=== PATIENT | male | born 1945 | race Caucasian/White ===

== ENCOUNTER 2019-10-22 10:43 | Inpatient (IN) ==
[2019-10-22] MEDS ORDERED: SODIUM CHLORIDE 0.9% INJ SCH (16:00)
[2019-10-22 16:47] LABS: HEMATOCRIT 41.5 % (42.0-52.0); HEMOGLOBIN 13.8 g/dL (14.0-18.0); RBC 4.51 XMIL (4.7-6.1); WBC 5.45 X1000 (4.8-10.8)
[2019-10-22 16:48] LABS: BASO# 0.01 X1000 (0.0-0.2); BASO% 0.2 % (0.0-0.8); EOS# 0.12 X1000 (0.0-0.7); EOS% 2.2 % (0.0-10.0); LYMPH# 1.88 X1000 (1.2-3.4); LYMPH% 34.5 % (20.5-51.1); MCH 30.6 PG (27-31); MCHC 33.3 g/dL (33-37); MONO% 7.3 % (1.7-9.3); NEUT# 3.04 X1000 (1.4-6.5); NEUT% 55.8 % (42.2-75.2); PLT 87 X1000 (130-400); RDW 14.7 % (11.5-14.5)
--- NOTE | 2019-10-22 17:00 | Diag Imaging Result Doc PS360 ---
EXAM: CT LUMBAR SPINE W/O CONTRAST INDICATION: Left sciatica TECHNIQUE: This exam was performed using automated exposure control, adjustment of mA or kV according to patient size, and/or use of iterative reconstruction technique. COMPARISON: None. FINDINGS: There is degenerative disc disease at multiple levels throughout the lumbar spine. It is mild at most levels but it is most significant at L5-S1 where there is a broad-based disc osteophyte complex causing moderate stenosis of the bony neuroforamina bilaterally. There is milder central canal narrowing at this level. At L4-5, there is a smaller broad-based disc osteophyte complex but there is bilateral facet arthropathy. This is causing at least mild bony foraminal stenosis bilaterally. Otherwise, there is no discrete fracture, subluxation, or significant intrinsic osseous lesion. The surrounding soft tissues are essentially unremarkable. IMPRESSION: Degenerative arthropathy at several levels that is most significant at L4-5 and L5-S1 as described. Electronically signed by Teddy Guerrero 10/22/2019 4:58 PM
[2019-10-22 17:12] LABS: CALCIUM 8.8 mg/dL (8.8-10.2); CREATININE 1.7 mg/dL (0.7-1.2); POTASSIUM 4.1 mmol/L (3.5-5.1)
[2019-10-22] MEDS: LOVENOX SUBQ SCH (17:31)
[2019-10-22] MEDS: PROTONIX IV SCH (17:31)
[2019-10-22] MEDS: SOLU-MEDROL IV SCH (17:33)
[2019-10-22] MEDS: NORVASC PO SCH ×2 (20:46→20:49)
[2019-10-22] MEDS: ROBAXIN PO SCH (20:46)
[2019-10-22] MEDS ORDERED: NORCO-7.5 PO PRN (22:08)
--- NOTE | 2019-10-22 22:36 | HISTORY AND PHYSICAL ---
CHIEF COMPLAINT: Intractable left sciatica pain for the last 2 weeks. HISTORY OF PRESENT ILLNESS: He is a 74-year-old white gentleman who was seen in my office last week with the above symptoms. He started having sciatica pain and pain is 8/10. Pain is increasing with coughing and sneezing. He is also unable to ambulate, some weakness and tingling and numbness. He had a positive straight leg raise test. He is a complicated historian. Family was at bedside. We were not able to do outpatient MRI due to permanent pacemaker. Options were discussed. Since the pain is out of control, not able to ambulate and positive straight leg raise test, admit to the hospital for control of the pain as well as further workup since include CT. 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 Alejandro. According to the family, he is due for PET scan sometime next week. So, basically admitted to the hospital for control of pain, physical therapy and further workup. PAST MEDICAL HISTORY: Glucose intolerance and chronic systolic heart failure stable. 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 PAST SURGICAL HISTORY: Hydrocelectomy, permanent pacemaker, aortic valve, mitral valve replacement, bovine by Dr. David, March 2016. ALLERGIES: Reported to codeine. MEDICINES IN MY OFFICE: Amlodipine 5 mg daily, B12 injections as needed, Aldactone 25 daily, Seroquel 25 daily, aspirin 81 mg daily. SOCIAL HISTORY: . Two children. Lives in [place]. No smoking. No alcohol. FAMILY HISTORY: Father at the age of 87. Mother at 78 with diabetes. HEALTH MAINTENANCE: Flu vaccine May 2019, pneumococcal 2010. Last prostate exam August 2019. Colonoscopy 11/17/2014, diverticulosis with Dr. Rayo. REVIEW OF SYSTEMS: HEENT: No headache. No vision problem. No earache. No sore throat. Neck: No goiter. No lymphadenopathy. No bruit. Cardiopulmonary: No chest pain, shortness of breath, PND, orthopnea. GI: No nausea, vomiting, or abdominal pain. : No history of hesitancy, frequency, dysuria. Musculoskeletal: Intractable left sciatica pain with weakness, tingling and numbness and stumbling. PHYSICAL EXAMINATION: VITAL SIGNS: Temperature is 97 degrees, pulse 70, blood pressure is stable. Height 6 feet 1 inch, 268 pounds. HEENT: Atraumatic, normocephalic. Pupils equal, reactive to light. TMs are normal. Nose and throat within normal limits. NECK: Supple no lymphadenopathy. CHEST: Clear. HEART: Sounds are regular. No murmurs. Pacemaker present on the left side of the chest. ABDOMEN: Belly is soft, obese, nontender. EXTREMITIES: Straight leg raise test is positive. Plantar flexion extension is normal. Gait is stable. INVESTIGATIONS: CBC: White cell count 5.4, hematocrit 41, platelet 87,000. SMA 7, sodium 140, potassium 4.1, BUN 30, creatinine 1.7. ASSESSMENT AND PLAN: 1. A 74-year-old white gentleman admitted to the hospital with left sciatica pain. Plain x-rays were negative in my office [address] of lumbar spine. In the meantime, continue on Robaxin IV steroids and physical therapy. 2. Deep venous thrombosis prophylaxis with Lovenox in light of chronic kidney disease and thrombocytopenia. Decrease the dose to 30 mg. 3. Chronic systolic heart failure that is improving. Currently on aspirin, Aldactone and Norvasc. Status post mitral and aortic valve bovine replacement. No need for anticoagulation. 4. Small-cell cancer on the sinus cavities, status post chemotherapy and radiation, stable. Waiting for PET scan by Dr. Alejandro. 5. Sleep apnea on CPAP machine and based on the CT further recommendations will be followed. cc: Sundeep Lynn MD
[2019-10-23] MEDS: SOLU-MEDROL IV SCH ×3 (00:08→18:15)
[2019-10-23] MEDS: ALDACTONE PO SCH (09:18)
[2019-10-23] MEDS: SEROQUEL PO SCH (09:18)
[2019-10-23] MEDS: ASPIRIN EC PO SCH (09:18)
[2019-10-23] MEDS: ROBAXIN PO SCH ×2 (09:18→20:27)
[2019-10-23] MEDS: NORVASC PO SCH ×2 (09:18→20:27)
--- NOTE | 2019-10-23 15:25 | Diag Imaging Result Doc PS360 ---
EXAM: BONE SCAN, TOTAL BODY 10/23/2019 HISTORY: BACK pain and small cell cancer in sinus TECHNIQUE: Bone scan, 26 mCi of technetium 99m MDP with static scanning the entire skeleton. COMMENT: There is increased activity in the right ankle just above the mortise. There is also increased activity in the right knee both which are probably related to degenerative disease. There is a faint focal is of increased activity in the upper tibia on the right and the mid femur on the left, the latter being somewhat more intense. There are no plain radiographs or other studies of these areas available for comparison. Otherwise are has no evidence of focal abnormal radiotracer accumulation. IMPRESSION: Focal abnormalities in the left femur and right tibia of uncertain significance. Advise correlation with plain radiographs. Electronically signed by Frankie Pan 10/23/2019 3:22 PM
[2019-10-23] MEDS: PROTONIX IV SCH (18:15)
[2019-10-23] MEDS: LOVENOX SUBQ SCH (18:16)
--- NOTE | 2019-10-23 22:05 | PROGRESS NOTE ---
DATE: 10/23/2019 SUBJECTIVE: The patient is ambulating to the bathroom without assistance. The pain is 8/10. Positive straight leg raise test. PHYSICAL EXAMINATION: Vital signs: Temperature is 97 degrees, pulse 69, blood pressure is stable. HEENT: Within normal limits. Chest: Clear. Heart: Sounds are regular. Abdomen: Belly is soft, nontender. Good bowel sounds. INVESTIGATIONS: CT scan of C-spine showed degenerative arthropathy at several levels, most significant at L4-L5, L5-S1. ASSESSMENT AND PLAN: 1. Chronic kidney disease stable. 2. Left sciatica pain. Continue [place] and IV steroids. Robaxin. 3. Out of the bed. 4. Deep venous thrombosis prophylaxis with Lovenox. 5. History of small cell cancer of sinus cavities in remission. Waiting for PET scan. Schedule for bone scan. Continue present treatment. We will follow up. Physical therapy as discussed. LEVEL OF DOCUMENTATION: 25 minutes. cc: Sundeep Lynn MD
[2019-10-24] MEDS: SOLU-MEDROL IV SCH ×4 (00:15→23:12)
[2019-10-24] MEDS: ALDACTONE PO SCH (08:59)
[2019-10-24] MEDS: SEROQUEL PO SCH (08:59)
[2019-10-24] MEDS: ROBAXIN PO SCH ×2 (08:59→23:04)
[2019-10-24] MEDS: ASPIRIN EC PO SCH (08:59)
[2019-10-24] MEDS: NORVASC PO SCH ×2 (09:00→23:04)
[2019-10-24] MEDS: LOVENOX SUBQ SCH (16:15)
[2019-10-24] MEDS: PROTONIX IV SCH (16:15)
--- NOTE | 2019-10-24 20:43 | PROGRESS NOTE ---
DATE: 10/24/2019 SUBJECTIVE: Patient's pain is a little better. Still some tingling and numbness in the left foot. Able to ambulate. PHYSICAL EXAMINATION: Vital Signs: Temperature is 97. Vitals are stable. HEENT: Within normal limits. Neck: Supple. Neurologic: Straight leg raise test is improving. Able to walk, and weakness is also getting better. ASSESSMENT AND PLAN: 1. Left sciatica pain. CT findings discussed. Continue IV steroids, Robaxin, hydrocodone. 2. Bone scan is negative. No evidence of metastatic disease. Continue present treatment out of the bed with physical therapy. 3. We will discharge in the morning, to follow up with outpatient with [facility]. LEVEL OF DOCUMENTATION: Twenty-five minutes. cc: Sundeep Lynn MD
[2019-10-25 08:23] VITALS: BP 152/91
[2019-10-25] MEDS: ROBAXIN PO SCH (09:58)
[2019-10-25] MEDS: ASPIRIN EC PO SCH (09:58)
[2019-10-25] MEDS: NORVASC PO SCH (09:58)
[2019-10-25] MEDS: SEROQUEL PO SCH (09:58)
[2019-10-25] MEDS: SOLU-MEDROL IV SCH (09:58)
[2019-10-25] MEDS: ALDACTONE PO SCH (09:58)
--- NOTE | 2019-10-26 21:47 | DISCHARGE SUMMARY ---
ADMISSION DATE: 10/22/2019 DISCHARGE DATE: 10/25/2019 DISCHARGING DIAGNOSIS: Intractable left sciatica pain due to multilevel spondylosis predominantly L4, L5. SECONDARY DIAGNOSIS: 1. Glucose intolerance. 2. Chronic systolic heart failure stable and chronic kidney disease stage 2, baseline creatinine 2.2. 3. Metabolic syndrome, history of gastric ulcer associated with Helicobacter pylori treated in November 2014. 4. Hiatal hernia. 5. Small cell cancer in the sinus cavities on the left side. 6. Sleep apnea on CPAP machine, paroxysmal atrial fibrillation status post cardioversion, vitamin B12 deficiency. 7. History of permanent pacemaker, history of aortic valve, mitral valve replacement by Dr. David in March 2016. BRIEF HISTORY: Please see the H and P that was done on 10/22/2019. In brief he is a 74-year-old white gentleman was admitted to the hospital with intractable left sciatica pain, unable to ambulate with tingling and numbness, pain is 8/10, positive straight leg raise test. 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 Alejandro. He appears to be in remission. He is due for PET scan next month. HOSPITAL COURSE: He was given IV steroids, [facility] and also Robaxin. Since he had a pacemaker we are not able to do outpatient MRI. CT of the lumbar spine as well as bone scan. Bone scan did not show any evidence of metastatic disease. LABS: White cell count 5.4, hematocrit 41, platelets 87,000. Sodium 140, potassium 4.1, BUN 30, creatinine 1.7, glucose 135. CT scan of lumbar spine showed degenerative arthropathy at several levels, most significant L4-L5, L5-S1. Bone scan focal abnormalities in the left femur, right tibia. No evidence of metastatic disease in the spine. Patient was discharged home in a stable condition with the following instruction. Patient did receive pneumococcal vaccine 23 03/29/2015 . Aldactone 25 daily, aspirin 81 mg daily, B12 injections once a month, Zofran as needed for nausea, quetiapine 25 mg daily, amlodipine 5 p.o. b.i.d., Medrol Dosepak, Robaxin 500 t.i.d., Ultracet 1 tablet p.o. q.6 p.r.n. pain. Outpatient Spine and Neuro consult and follow up in my office next week. cc: Sundeep Lynn MD MTDD
== END 2019-10-25 11:23 | disposition home or self-care (01) | DRG 552 ==
LOC: DIRADM 10:43 → 4N 11:26
PROVIDERS: ADMIT Internal Medicine; ATTEND Internal Medicine